=== PATIENT | male | born 1995 | race Caucasian/White ===

== ENCOUNTER 2018-03-26 13:32 | Emergency (ER) | payer OTHER ==
[2018-03-26] MEDS ORDERED: Diphtheria,Pertussis(Acell),Tetanus Vaccine 0.5 ML Syringe IM ONE (13:51)
[2018-03-26 13:52] VITALS: BP 124/91
--- NOTE | 2018-03-26 14:16 | EDM.PDOC ---
ED HPI GENERAL MEDICAL PROBLEM - General Chief Complaint: Lower Extremity Injury/Pain Stated Complaint: PT HURT HIS LT KNEE Time Seen by Provider: 03/26/18 14:09 Source of Information: Reports: Patient History Limitations: Reports: No Limitations - History of Present Illness INITIAL COMMENTS - FREE TEXT/NARRATIVE: HISTORY AND PHYSICAL: [] 22-year-old male presenting with left knee pain History of Present Illness: []Patient was playing beer darts last night and was hit with a dart into his left knee approximately 2 inches deep he pulled it out Today his knee is swollen and red and hot Review of Systems: As per history of present illness and below otherwise all systems reviewed and negative. Past medical history: As per history of present illness and as reviewed below otherwise noncontributory. Surgical history: As per history of present illness and as reviewed below otherwise noncontributory. Social history: No reported history of drug or alcohol abuse. Family history: As per history of present illness and as reviewed below otherwise noncontributory. Physical exam: Alert young man answering questions appropriately in full sentences without any shortness of breath. Review of Systems: HEENT: Atraumatic, normocehpalic, pupils reactive, negative for conjunctival pallor or scleral icterus, mucous membranes moist, throat clear, neck supple, nontender, trachea midline. Lungs: Clear to auscultation, breath sounds equal bilaterally, chest non tender. Heart: S1S2, regular, negative for clicks, rubs, or JVD. Abdomen: Soft, nondistended, nontender. Negative for masses or hepatossplenmegaly. Negative for costovertebral tenderness. Pelvis: Stable nontender. Genitourinary: Deferred. Rectal: Deferred Extremities: Right knee with erythema edema heat radiating., negative for cords or calf pain. Neurovascular unremarkable. Neuro: Awake, alert, oriented. Cranial nerves II through XII unremarkable. Cerebellum unremarkable. Motor and sensory unremarkable throughout. Exam nonfocal. No foreign objects are noted in the right knee Diagnostics: []X-ray right knee Therapeutics: []Tetanus vaccine Impression: []: Soft tissue infection Plan: []Discharged home Augmentin Follow-up with your primary care in 3 days Return to emergency room as discussed and directed Definitive disposition and diagnosis as appropriate pending reevaluation and review of above. Onset: Sudden Duration: Day(s): (1) Location: Reports: Lower Extremity, Left Quality: Reports: Ache Severity: Mild Improves with: Reports: None Worsens with: Reports: None Left Knee Pain Score (Numeric/FACES): 8 - Related Data Allergies Allergy/AdvReac Type Severity Reaction Status Date / Time No Known Allergies Allergy Verified 03/26/18 13:45 Home Meds: Home Meds Amoxicillin/Potassium Clav [Augmentin 875-125 Tablet] 1 each PO BID #14 tablet 03/26/18 [Rx] Past Medical History Neurological History: Reports: Other (See Below) - Infectious Disease History Infectious Disease History: Reports: Chicken Pox - Past Surgical History Neurological Surgical History: Reports: Other (See Below) Other Neurological Surgeries/Procedures: hx "broken neck" Musculoskeletal Surgical History: Reports: Other (See Below) Social & Family History - Family History Family Medical History: Noncontributory - Caffeine Use Caffeine Use: Reports: None - Recreational Drug Use Recreational Drug Use: No Review of Systems - Review of Systems Review Of Systems: ROS reveals no pertinent complaints other than HPI. ED EXAM, GENERAL - Physical Exam Exam: See Below (See dictation) Course - Vital Signs Last Recorded V/S: Last Vital Signs Temp 36.7 C 03/26/18 13:46 Pulse 93 03/26/18 13:46 Resp 16 03/26/18 13:46 BP 124/91 H 03/26/18 13:46 Pulse Ox 96 03/26/18 13:46 - Orders/Labs/Meds Orders: Active Orders 24 hr Category Date Time Status Vaccines to be Administered [RC] PER UNIT ROUTINE Care 03/26/18 13:51 Active Knee 3V Lt [CR] Stat Exams 03/26/18 14:10 Taken Meds: Medications Discontinued Medications Generic Name Dose Route Start Last Admin Trade Name Freq PRN Reason Stop Dose Admin Diphtheria/Tetanus/Acell Pertussis 0.5 ml 03/26/18 13:51 03/26/18 14:15 Adacel IM 03/26/18 13:52 0.5 ml .ONCE ONE Administration Departure - Departure Time of Disposition: 14:57 Disposition: Home, Self-Care 01 Condition: Good Clinical Impression: Cellulitis Qualifiers: Site of cellulitis: extremity Site of cellulitis of extremity: lower extremity Laterality: left Qualified Code(s): L03.116 - Cellulitis of left lower limb - Discharge Information Prescriptions: Amoxicillin/Potassium Clav [Augmentin 875-125 Tablet] 1 each PO BID #14 tablet Instructions: Cellulitis, Adult Referrals: PCP,None [Primary Care Provider] - Forms: ED Department Discharge Additional Instructions: The following information is given to patients seen in the emergency department who are being discharged to home. This information is to outline your options for follow-up care. We provide all patients seen in our emergency department with a follow-up referral. The need for follow-up, as well as the timing and circumstances, are variable depending upon the specifics of your emergency department visit. If you don't have a primary care physician on staff, we will provide you with a referral. We always advise you to contact your personal physician following an emergency department visit to inform them of the circumstance of the visit and for follow-up with them and/or the need for any referrals to a consulting specialist. The emergency department will also refer you to a specialist when appropriate. This referral assures that you have the opportunity for followup care with a specialist. All of these measure are taken in an effort to provide you with optimal care, which includes your followup. Under all circumstances we always encourage you to contact your private physician who remains a resource for coordinating your care. When calling for followup care, please make the office aware that this follow-up is from your recent emergency room visit. If for any reason you are refused follow-up, please contact the [facility] emergency department at and asked to speak to the emergency department charge nurse. You have soft tissue injury with infection Augmentin is electronically sent to your pharmacy Follow-up with your primary care provider in the next 3 days for reevaluation Worsening of symptoms return to emergency room immediately [facility] [address] [place] [address] [id number] [address] [address] - My Orders Last 24 Hours: My Active Orders 03/26/18 13:51 Vaccines to be Administered [RC] PER UNIT ROUTINE 03/26/18 14:10 Knee 3V Lt [CR] Stat - Assessment/Plan Last 24 Hours: My Active Orders 03/26/18 13:51 Vaccines to be Administered [RC] PER UNIT ROUTINE 03/26/18 14:10 Knee 3V Lt [CR] Stat
--- NOTE | 2018-03-27 14:35 | CR ---
EXAM DATE: 03/26/18 PATIENT'S AGE: 22 Patient: FELIPA CAMPBELL Facility: [place], [place] Site . Site : 1995 Study: XRay Knee Left [id number] 2:41:55 PM Ordering Physician: Doctor Butcher Final Report: INDICATION: Puncture wound. TECHNIQUE: Three views. IMPRESSION: Negative. No foreign body or air. No joint effusion. No bone defect. Dictated by Donavan Estrada MD @ Mar 26 2018 3:21PM (Electronic Signature) Report Signed by Proxy. RODY
== END 2018-03-26 15:18 | disposition home or self-care (01) ==
LOC: MW.ED 13:32
DX: L03.116 Cellulitis of left lower limb (principal); Z23 Encounter for immunization
CPT/HCPCS: 73562-26-LT; 73562-LT; 90471; 90715; 99283; 99283-25

== ENCOUNTER 2019-04-07 17:51 | Emergency (ER) | payer OTHER, BC ==
[2019-04-07] MEDS ORDERED: Bacitracin Oint 1 GM U/D Packet TOP ONE (17:56)
--- NOTE | 2019-04-07 18:00 | EDM.PDOC ---
ED HPI GENERAL MEDICAL PROBLEM - General Chief Complaint: Laceration Stated Complaint: LEFT THUMB INJURY Time Seen by Provider: 04/07/19 17:52 Source of Information: Reports: Patient History Limitations: Reports: No Limitations - History of Present Illness INITIAL COMMENTS - FREE TEXT/NARRATIVE: HISTORY AND PHYSICAL: History of present illness: Patient is a 23-year-old male who presents to the emergency room with complaints of a laceration to his left thumb. He states he was vehicle when a piece of metal cut his left thumb. His last tetanus was updated in 2018. He denies any numbness, tingling or loss of function of the digit. Review of systems: As per history of present illness and below otherwise all systems reviewed and negative. Past medical history: As per history of present illness and as reviewed below otherwise noncontributory. Surgical history: As per history of present illness and as reviewed below otherwise noncontributory. Social history: See social history for further information Family history: As per history of present illness and as reviewed below otherwise noncontributory. Physical exam: General: Well-developed and well-nourished 23-year-old male. Alert and oriented. Nontoxic appearing and in no acute distress. HEENT: Atraumatic, normocephalic, pupils equal and reactive bilaterally, negative for conjunctival pallor or scleral icterus, mucous membranes moist, TMs normal bilaterally, throat clear, neck supple, nontender, trachea midline. No drooling or trismus noted. No meningeal signs. No hot potato voice noted. Lungs: Clear to auscultation, breath sounds equal bilaterally, chest nontender. Heart: S1S2, regular rate and rhythm without overt murmur Abdomen: Soft, nondistended, nontender. Skin: 2 cm laceration to the base of the left thumb. Skin is very dirty with grease and oil from working on a vehicle. Otherwise skin is intact, warm, dry. No lesions or rashes noted. Extremities: See skin for details. Moves all extremities per self without difficulty or deficits. Neurovascular unremarkable. Neuro: Awake, alert, oriented. Cranial nerves II through XII unremarkable. Cerebellum unremarkable. Motor and sensory unremarkable throughout. Exam nonfocal. Notes: 1% lidocaine was used to anesthetize the area. Patient is dirty with grease M.D. cell from working on the vehicle. Did have the patient wash his hands thoroughly over the sink with chlorhexidine. The laceration itself was irrigated with wound wash and chlorhexidine. 4-0 nylon, #5 interrupted sutures placed. Patient tolerated well. Patient reports that he will likely get his hands dirty, we'll place him prophylactically on Keflex. Supportive care measures were reviewed and discussed. Voices understanding and is agreeable to plan of care. Denies any further questions or concerns at this time. Diagnostics: None Therapeutics: 1% lidocaine, bacitracin, wound care Prescription: Keflex Impression: Laceration Plan: 1. Keep the area clean and dry. Continue to monitor for signs of infection. Sutures to be removed in 7-10 days. 2. Tylenol and/or ibuprofen as needed for pain management. 3. Please follow-up with your primary care provider in the next 1-2 days. Return to the ED as needed and as discussed. Definitive disposition and diagnosis as appropriate pending reevaluation and review of above. - Related Data Allergies Allergy/AdvReac Type Severity Reaction Status Date / Time No Known Allergies Allergy Verified 04/07/19 18:11 Home Meds: Home Meds . [No Known Home Meds] 04/07/19 [History] Past Medical History Neurological History: Reports: Other (See Below) - Infectious Disease History Infectious Disease History: Reports: Chicken Pox - Past Surgical History Neurological Surgical History: Reports: Other (See Below) Other Neurological Surgeries/Procedures: hx "broken neck" Musculoskeletal Surgical History: Reports: Other (See Below) Social & Family History - Family History Family Medical History: Noncontributory - Caffeine Use Caffeine Use: Reports: None ED ROS GENERAL - Review of Systems Review Of Systems: ROS reveals no pertinent complaints other than HPI. ED EXAM, SKIN/RASH Exam: See Below (See dictation) ED SKIN PROCEDURES - Laceration/Wound Repair Left thumb Lac/Wound length In cm: 2 Appearance: Subcutaneous, Linear, Mildly Contaminated Distal NVT: Neuro & Vascular Intact, No Tendon Injury Anesthetic Type: Local Local Anesthesia - Lidocaine (Xylocaine): 1% Plain Local Anesthetic Volume: 3cc Skin Prep: Chlorhexidine (Hibiciens), Saline Saline Irrigation (cc's): 25 Exploration/Debridement/Repair: Wound Explored, No Foreign Material Found Closed with: Sutures Suture Size: 4-0 # of Sutures: 5 Suture Type: Nylon, Interrupted, Simple Drain Placement: No Sterile Dressing Applied: Provider Tetanus Status Addressed: Yes Complications: No Course - Vital Signs Last Recorded V/S: Last Vital Signs Temp 96.6 F 04/07/19 18:12 Pulse 95 04/07/19 18:12 Resp 18 04/07/19 18:12 BP 169/96 H 04/07/19 18:12 Pulse Ox 97 04/07/19 18:12 - Orders/Labs/Meds Meds: Medications Discontinued Medications Generic Name Dose Route Start Last Admin Trade Name Cele PRN Reason Stop Dose Admin Bacitracin 1 dose 04/07/19 17:56 Bacitracin Oint 1 Gm TOP 04/07/19 17:57 ONETIME ONE Lidocaine HCl 5 ml 04/07/19 17:56 Xylocaine-Mpf 1% INJECT 04/07/19 17:57 ONETIME ONE Departure - Departure Time of Disposition: 18:22 Disposition: Home, Self-Care 01 Clinical Impression: Laceration - Discharge Information Instructions: Laceration Care, Adult, [id number] Referrals: PCP,None [Primary Care Provider] - Forms: ED Department Discharge Additional Instructions: The following information is given to patients seen in the emergency department who are being discharged to home. This information is to outline your options for follow-up care. We provide all patients seen in our emergency department with a follow-up referral. The need for follow-up, as well as the timing and circumstances, are variable depending upon the specifics of your emergency department visit. If you don't have a primary care physician on staff, we will provide you with a referral. We always advise you to contact your personal physician following an emergency department visit to inform them of the circumstance of the visit and for follow-up with them and/or the need for any referrals to a consulting specialist. The emergency department will also refer you to a specialist when appropriate. This referral assures that you have the opportunity for follow-up care with a specialist. All of these measure are taken in an effort to provide you with optimal care, which includes your follow-up. Under all circumstances we always encourage you to contact your private physician who remains a resource for coordinating your care. When calling for follow-up care, please make the office aware that this follow-up is from your recent emergency room visit. If for any reason you are refused follow-up, please contact the [facility] Emergency Department at and asked to speak to the emergency department charge nurse. [facility] [address] [place] [address] [facility] [address] [place] [id number] 1. Keep the area clean and dry. Continue to monitor for signs of infection. Sutures to be removed in 7-10 days. 2. Tylenol and/or ibuprofen as needed for pain management. 3. Please follow-up with your primary care provider in the next 1-2 days. Return to the ED as needed and as discussed.
[2019-04-07 18:14] VITALS: BP 169/96
== END 2019-04-07 18:42 | disposition home or self-care (01) ==
LOC: MW.ED 17:51
DX: S61.012A Laceration without foreign body of left thumb without damage to nail, initial encounter (principal); W45.8XXA Other foreign body or object entering through skin, initial encounter
CPT/HCPCS: 12001; 99282; J2001

== ENCOUNTER 2020-09-27 13:21 | Emergency (ER) | payer BC, OTHER ==
--- NOTE | 2020-09-27 13:50 | EDM.PDOC ---
ED HPI GENERAL MEDICAL PROBLEM - General Chief Complaint: Upper Extremity Injury/Pain Stated Complaint: SMASHED RT HAND Time Seen by Provider: 09/27/20 13:30 Source of Information: Reports: Patient History Limitations: Reports: No Limitations - History of Present Illness INITIAL COMMENTS - FREE TEXT/NARRATIVE: Patient is a 25-year-old male who presents today for right hand pain and swelling. Patient states that he was working on a car when the veto slipped and object landed on his right hand. This happened yesterday. Patient states that he is in small amount of pain does not require any pain meds pain is not radiate initially made worse with palpation. Patient denies any other injuries or complaints. Right Hand Pain Score (Numeric/FACES): 1 - Related Data Allergies Allergy/AdvReac Type Severity Reaction Status Date / Time No Known Allergies Allergy Verified 09/27/20 13:30 Home Meds: Home Meds . [No Known Home Meds] 04/07/19 [History] Past Medical History - Past Health History Medical/Surgical History: Denies Medical/Surgical History Neurological History: Reports: Other (See Below) - Infectious Disease History Infectious Disease History: Reports: Chicken Pox - Past Surgical History Neurological Surgical History: Reports: Other (See Below) Other Neurological Surgeries/Procedures: hx "broken neck" Musculoskeletal Surgical History: Reports: Other (See Below) Other Musculoskeletal Surgeries/Procedures:: Broken back with surgical fixation. Social & Family History - Family History Family Medical History: No Pertinent Family History - Tobacco Use Tobacco Use Status *Q: Never Tobacco User - Caffeine Use Caffeine Use: Reports: Coffee, Energy Drinks, Soda, Tea - Recreational Drug Use Recreational Drug Use: No Review of Systems - Review of Systems Review Of Systems: See Below Constitutional: Reports: No Symptoms Eyes: Reports: No Symptoms Ears: Reports: No Symptoms Nose: Reports: No Symptoms Mouth/Throat: Reports: No Symptoms Respiratory: Reports: No Symptoms Cardiovascular: Reports: No Symptoms GI/Abdominal: Reports: No Symptoms Genitourinary: Reports: No Symptoms Musculoskeletal: Reports: Hand Pain Skin: Reports: No Symptoms Neurological: Reports: No Symptoms Psychiatric: Reports: No Symptoms ED EXAM, GENERAL - Physical Exam Exam: See Below Exam Limited By: No Limitations General Appearance: Alert, No Apparent Distress Head: Atraumatic Respiratory/Chest: No Respiratory Distress Cardiovascular: Normal Peripheral Pulses Peripheral Pulses: 1+: Radial (L), Radial (R) Extremities: Normal Inspection, Normal Range of Motion, Normal Capillary Refill, Other (dorsal hand swelling ) Neurological: Alert, Oriented, Normal Cognition, Normal Gait ED TRAUMA EXTREMITY PROCEDURES - Splinting Right Upper Extremity Splint Site: right hand Pre-Procedure NV Status: Normal Post-Procedure NV Status: Normal Splint Material: Fiberglass Splint Design: Gutter (radial) Applied & Form Fitted By: Nurse Provider Post-Splint Application NV Check: NV Status Normal Complications: No Course - Vital Signs Last Recorded V/S: Last Vital Signs Temp 96.7 F L 09/27/20 13:30 Pulse 82 09/27/20 13:30 Resp 16 09/27/20 13:30 BP 134/82 09/27/20 13:30 Pulse Ox 97 09/27/20 13:30 Departure - Departure Time of Disposition: 14:37 Disposition: Home, Self-Care 01 Condition: Good Clinical Impression: Metacarpal bone fracture - Discharge Information *PRESCRIPTION DRUG MONITORING PROGRAM REVIEWED*: Not Applicable *COPY OF PRESCRIPTION DRUG MONITORING REPORT IN PATIENT MICK: Not Applicable Instructions: Metacarpal Fracture Referrals: PCP,None [Primary Care Provider] - Forms: ED Department Discharge Additional Instructions: The following information is given to patients seen in the emergency department who are being discharged to home. This information is to outline your options for follow-up care. We provide all patients seen in our emergency department with a follow-up referral. The need for follow-up, as well as the timing and circumstances, are variable depending upon the specifics of your emergency department visit. If you don't have a primary care physician on staff, we will provide you with a referral. We always advise you to contact your personal physician following an emergency department visit to inform them of the circumstance of the visit and for follow-up with them and/or the need for any referrals to a consulting specialist. The emergency department will also refer you to a specialist when appropriate. This referral assures that you have the opportunity for follow-up care with a specialist. All of these measure are taken in an effort to provide you with optimal care, which includes your follow-up. Under all circumstances we always encourage you to contact your private physic ernestine who remains a resource for coordinating your care. When calling for follow- up care, please make the office aware that this follow-up is from your recent emergency room visit. If for any reason you are refused follow-up, please contact the [facility] Emergency Department at and asked to speak to the emergency department charge nurse. Please follow up with your primary care physician. If you do not have a primary care physician, see below: [facility] - [facility] Professional [address], [address] [place] [address] You have a fracture of the second bone of your hand. Please if you see fit follow-up with orthopedic in outpatient. If you develop any numbness or tingling swelling to the hand please return to the ED. Sepsis Event Note (ED) - Evaluation Sepsis Screening Result: No Definite Risk - Focused Exam Vital Signs: Vital Signs Temp Pulse Resp BP Pulse Ox 09/27/20 13:30 96.7 F L 82 16 134/82 97 - Assessment/Plan Plan: Patient is a 25-year-old male presents today for right hand swelling at the nodules on exam. Patient has good range of motion with swelling to the dorsum of the hand. Will obtain x-ray and reassess.
--- NOTE | 2020-09-27 14:11 | CR ---
Indication: Crush injury 1 week ago. Technique: Two views of the right hand. Comparison: None Findings: The joint spaces are well maintained. A mid-diaphyseal mildly comminuted mildly displaced fracture of the mid-diaphysis of the 2nd metacarpal is identified. This is not an intra-articular fracture. No other fractures are identified. Impression: Mid-diaphyseal right 2nd metacarpal fracture. Dictated by Dafne Scanlon MD @ Sep 27 2020 2:11PM Signed by Dr. Dafne Scanlon @ Sep 27 2020 2:12PM
[2020-09-27 15:16] VITALS: BP 132/70; PULSE 78
== END 2020-09-27 14:51 | disposition home or self-care (01) ==
LOC: MW.ED 13:21
DX: S62.320A Displaced fracture of shaft of second metacarpal bone, right hand, initial encounter for closed fracture (principal); W22.8XXA Striking against or struck by other objects, initial encounter
CPT/HCPCS: 29125; 73120-26-RT; 73120-RT; 99283; 99283-25

== ENCOUNTER 2020-12-20 03:49 | Emergency (ER) | payer BC ==
--- NOTE | 2020-12-20 04:00 | EDM.PDOC ---
<Js Moss - Last Filed: 12/20/20 17:00> ED HPI GENERAL MEDICAL PROBLEM - General Chief Complaint: Upper Extremity Injury/Pain Stated Complaint: LT HAND LACERATION Time Seen by Provider: 12/20/20 03:52 - History of Present Illness INITIAL COMMENTS - FREE TEXT/NARRATIVE: Patient was signed out to me by Dr. Zimmerman pending reevaluation and suture repair at 7 AM I did reevaluate the patient and patient was sleeping comfortably. We will reevaluate for clinical sobriety and to perform a suture repair. Per prior physician the wound had been cleaned in a splint had already been made we just need to suture it loosely. Imaging reviewed which did reveal a markedly comminuted displaced fracture involving the base and proximal shaft of the third proximal metacarpal consistent with a crush injury. Laceration Repair Note Repair of the complex stellate 3 cm x 2 cm left hand wound was done by myself. Wound was irrigated well with saline. Local anesthesia with lidocaine was performed. No foreign bodies were noted. The wound was repaired with 6 5-0 directed nylon sutures. Wound edges approximated well. Bacitracin ointment and a sterile dressing were applied. Post splint application revealed a neurovascularly intact hand. We did provide the patient with his first dose of antibiotics at this time. He is to follow-up with surgery and [place] DISPOSITION: The patient was discharged home in stable condition. The patient will follow up with surgery in [place] as discussed by primary emergency physician CONDITION: Fair PROCEDURES: Laceration repair FINAL IMPRESSION(S)/DIAGNOSES: 1. Acute open crush injury of the third digit of the left hand 2. Acute complex laceration status post suture repair Js Moss M.D. - Related Data Allergies Allergy/AdvReac Type Severity Reaction Status Date / Time No Known Allergies Allergy Verified 12/20/20 04:00 Home Meds: Home Meds Acetaminophen [Tylenol Extra Strength] 500 mg PO Q6HR #28 tablet 12/20/20 [Rx] Amoxicillin/Clavulanate K [Augmentin 875-125 MG] 1 tab PO BID #10 tablet 12/20/20 [Rx] Ibuprofen 600 mg PO Q6HR #28 tablet 12/20/20 [Rx] Departure - Departure Time of Disposition: 09:24 Disposition: Home, Self-Care 01 Condition: Fair Clinical Impression: Finger fracture, left Qualifiers: Encounter type: initial encounter Finger: middle finger Fracture type: open Phalanx: unspecified phalanx Fracture alignment: displaced Qualified Code(s): S62.603B - Fracture of unspecified phalanx of left middle finger, initial encounter for open fracture - Discharge Information *PRESCRIPTION DRUG MONITORING PROGRAM REVIEWED*: No *COPY OF PRESCRIPTION DRUG MONITORING REPORT IN PATIENT MICK: No Prescriptions: Amoxicillin/Clavulanate K [Augmentin 875-125 MG] 1 tab PO BID #10 tablet Ibuprofen 600 mg PO Q6HR #28 tablet Acetaminophen [Tylenol Extra Strength] 500 mg PO Q6HR #28 tablet Instructions: Finger Fracture, Adult, [id number], Crush Injury of the Hand, [id number], Pain Medicine Instructions, [id number] Referrals: PCP,None [Primary Care Provider] - Forms: ED Department Discharge Additional Instructions: It is very important that you call the hand surgeon listed below first thing Tuesday. He will follow up with him in his clinic on Tuesday. Dr. Lawrence [facility], [address] [place] [address] The following information is given to patients seen in the emergency department who are being discharged to home. This information is to outline your options for follow-up care. We provide all patients seen in our emergency department with a follow-up referral. The need for follow-up, as well as the timing and circumstances, are variable depending upon the specifics of your emergency department visit. If you don't have a primary care physician on staff, we will provide you with a referral. We always advise you to contact your personal physician following an emergency department visit to inform them of the circumstance of the visit and for follow-up with them and/or the need for any referrals to a consulting specialist. The emergency department will also refer you to a specialist when appropriate. This referral assures that you have the opportunity for follow-up care with a specialist. All of these measure are taken in an effort to provide you with optimal care, which includes your follow-up. Under all circumstances we always encourage you to contact your private physician who remains a resource for coordinating your care. When calling for follow-up care, please make the office aware that this follow-up is from your recent emergency room visit. If for any reason you are refused follow-up, please contact the [facility] Emergency Department at and asked to speak to the emergency department charge nurse. <Aniceto Zimmerman - Last Filed: 12/20/20 19:02> ED HPI GENERAL MEDICAL PROBLEM - History of Present Illness INITIAL COMMENTS - FREE TEXT/NARRATIVE: 25-year-old male presents with left hand pain after a veto failed while he was working on a car related to a crush injury. Pain is severe worsens with attempted motion. No other injury last tetanus 3 years ago L hand Pain Score (Numeric/FACES): 8 Past Medical History - Past Health History Medical/Surgical History: Denies Medical/Surgical History Neurological History: Reports: Other (See Below) - Infectious Disease History Infectious Disease History: Reports: Chicken Pox - Past Surgical History Neurological Surgical History: Reports: Other (See Below) Other Neurological Surgeries/Procedures: hx "broken neck" Musculoskeletal Surgical History: Reports: Other (See Below) Other Musculoskeletal Surgeries/Procedures:: Broken back with surgical fixation. Social & Family History - Family History Family Medical History: No Pertinent Family History - Caffeine Use Caffeine Use: Reports: Coffee, Energy Drinks, Soda, Tea Review of Systems - Review of Systems Review Of Systems: See Below Constitutional: Reports: No Symptoms Musculoskeletal: Reports: Other (Per HPI) Neurological: Reports: No Symptoms ED EXAM, GENERAL - Physical Exam Exam: See Below Free Text/Narrative:: General Appearance: No acute distress, appears comfortable HEENT: Normocephalic/atraumatic, sclera anicteric, mucous membranes moist Neck: Normal range of motion Musculoskeletal: 2+ left radial pulse all 5 digits of the left hand are neurovascularly intact there is an apparent crush injury with a stellate laceration at the third MCP joint patient has apparent intact motion of the th umb index ring and pinky fingers middle finger motion testing deferred pending x-ray results. Neurologic: Awake, alert, no obvious deficits, moving all extremities Psychiatric: Appropriate, cooperative Course - Vital Signs Last Recorded V/S: Last Vital Signs Temp 96.6 F L 12/20/20 03:54 Pulse 102 H 12/20/20 09:28 Resp 17 12/20/20 09:28 BP 129/69 12/20/20 09:28 Pulse Ox 96 12/20/20 09:28 - Orders/Labs/Meds Meds: Medications Discontinued Medications Generic Name Dose Route Start Last Admin Trade Name Norrisq PRN Reason Stop Dose Admin Hydrocodone Bitart/Acetaminophen 1 tab 12/20/20 04:08 12/20/20 04:13 [place] 325-5 Mg PO 12/20/20 04:09 1 tab ONETIME ONE Administration Amoxicillin/Clavulanate Potassium 1 tab 12/20/20 09:20 12/20/20 09:26 Augmentin 875 Mg/125 Mg PO 12/20/20 09:21 1 tab ONETIME ONE Administration Bacitracin Confirm 12/20/20 09:14 12/20/20 09:31 Bacitracin Oint 1 Gm Administered 12/20/20 09:15 Not Given Dose 1 dose .ROUTE .STK-MED ONE Bacitracin 1 dose 12/20/20 09:23 12/20/20 09:30 Bacitracin Oint 1 Gm TOP 12/20/20 09:24 1 dose ONETIME ONE Administration Ibuprofen 800 mg 12/20/20 04:08 12/20/20 04:13 Motrin PO 12/20/20 04:09 800 mg ONETIME ONE Administration Lidocaine/Epinephrine Confirm 12/20/20 05:23 12/20/20 05:51 Xylocaine 1% With Epinephrine 1:100,000 Administered 12/20/20 05:24 Not Given Dose 20 ml .ROUTE .STK-MED ONE Lidocaine/Epinephrine 20 ml 12/20/20 05:48 12/20/20 05:51 Xylocaine 1% With Epinephrine 1:100,000 INJECT 12/20/20 05:49 20 ml ONETIME ONE Administration Sepsis Event Note (ED) - Focused Exam Vital Signs: Vital Signs Pulse Resp BP Pulse Ox 12/20/20 09:28 102 H 17 129/69 96 - Assessment/Plan Assessment:: 25-year-old male presenting with left hand laceration after a crush injury. Tetanus is up-to-date wound has been cleaned and irrigated. X-rays pending once we know the status of the bones we will formally assess tendon function. 0444: XR demonstrates highly comminuted fx of the proximal phalanx of the middle finger, tendon function at the DIP appears intact, unable to reliably test the function of the PIP. Pt discussed with Dr. Villa (cert occupational therapy asst ortho). The patient will need to see a hand surgeon for definitive management. Given this patient was discussed with Dr. Lawrence. Will repair and splint and patient will f/u with him on Tuesday AM. 0700: Pt is unable to cooperate with procedure at this time. Procedure and disposition signed out to Dr. Moss.
[2020-12-20] MEDS ORDERED: Acetaminophen/HYDROcodone 325-5 MG Tab PO ONE (04:08)
[2020-12-20] MEDS ORDERED: Ibuprofen 800 MG Tab PO ONE (04:08)
--- NOTE | 2020-12-20 05:17 | CR ---
Indication: Crush injury Technique: Two views of the left hand Comparison: None Findings/Impression: Markedly comminuted, displaced fracture involving the base and proximal shaft of the 3rd proximal metacarpal, consistent with crush injury. Numerous small metallic density foci are concerning for foreign bodies. No associated joint dislocation. No additional fractures. Dictated by Cesar Pantoja MD @ Dec 20 2020 5:15AM Signed by Dr. Cesar Pantoja @ Dec 20 2020 5:15AM
[2020-12-20] MEDS ORDERED: Lidocaine 1% with EPINEPHrine 1:100,000 20 ML MDV ONE (05:23)
[2020-12-20] MEDS ORDERED: Lidocaine 1% with EPINEPHrine 1:100,000 20 ML MDV INJECT ONE (05:48)
[2020-12-20] MEDS ORDERED: Bacitracin Oint 1 GM U/D Packet ONE (09:14)
[2020-12-20] MEDS ORDERED: Amoxicillin/Clavulanate K 875-125 MG Tab PO ONE (09:20)
[2020-12-20] MEDS ORDERED: Bacitracin Oint 1 GM U/D Packet TOP ONE (09:23)
[2020-12-20 09:29] VITALS: BP 129/69; PULSE 102
== END 2020-12-20 09:39 | disposition home or self-care (01) ==
LOC: MW.ED 03:49
DX: S67.193A Crushing injury of left middle finger, initial encounter (principal); S62.613B Displaced fracture of proximal phalanx of left middle finger, initial encounter for open fracture; X58.XXXA Exposure to other specified factors, initial encounter
CPT/HCPCS: 12002; 73120; 99283; A9270; 13152; 29125

== ENCOUNTER 2022-08-06 19:13 | Emergency (ER) | payer BC ==
[2022-08-06] MEDS ORDERED: Lidocaine 1% 5 ML VIAL INJECT ONE (19:22)
[2022-08-06] MEDS ORDERED: Bacitracin Oint 1 GM U/D Packet TOP ONE (20:53)
[2022-08-06 21:17] VITALS: BP 118/68; PULSE 70
== END 2022-08-06 21:17 | disposition home or self-care (01) ==
LOC: MW.ED 19:13
DX: S61.315A Laceration without foreign body of left ring finger with damage to nail, initial encounter (principal); W26.8XXA Contact with other sharp object(s), not elsewhere classified, initial encounter
CPT/HCPCS: 11760; 12001; 99282